=== PATIENT | female | born 1955 | race Caucasian/White ===

== ENCOUNTER 2018-10-19 11:56 | Emergency (ER) | payer BC ==
--- OUTSIDE RECORDS SUMMARY | 2018-10-19 13:10 | XMS REPORT | Continuity of Care Document ---
:1955 External Reference #:[id number] Author Name Camille Ryder PA-C Address [address] [place] [address] [place] [address] Care Team Providers Name Role Phone Jena Zapien MD Care Team Information Corrective Therapy Aide Teacher Unavailable Jena Zapien MD Primary Care Physician Unavailable Payers Type Date Identification Numbers Payment Provider Subscriber Policy Number: [id number] [facility] Jena Cortes Group Number: [id number] [address] [address] PayID: [id number] [place] [address] Advance Directives Description No Information Available Problems Date Description Provider Status Onset: 10/08/2018 Nausea and vomiting Camille Ryder PA-C Active Onset: 10/08/2018 Esophageal dysphagia Camille Ryder PA-C Active Onset: 10/08/2018 Gastroesophageal reflux disease Camille Ryder PA-C Active Family History Date Family Member(s) Problem(s) Comments General Hemochromatosis Social History Type Date Description Comments Sex Unknown Tobacco Use Start: Unknown End: Unknown Patient is a former smoker Smoking Status Reviewed: 10/08/18 Patient is a former smoker Allergies, Adverse Reactions, Alerts Date Description Reaction Status Severity Comments 04/28/2015 Darvon Active 04/28/2015 Codeine Active Medications Medication Date Status Form Strength Qnty SIG Indications Ordering Provider Rosuvastatin 10/08 Active Tablets 5mg 90tab Daily Paz s Maura león MD Tramadol HCL Active Tablets 50mg Howjacey, MD Jena Pantoprazole Active Tablets 40mg Howjacey, DR Jena MD Hydrocodone-Acetam Active Tablets 5-325mg Curry, ino MD Jena Placquenil Active 200mg bid Unknown Zolpidem Tartrate Active Tablets 10mg hs Unknown / Symbicort Active Aerosol 160-4.5mc 2 puff Unknown / g/Act twice a day Duloxetine HCL Active Caps DR 60mg Unknown Part Metoprolol Active Tablets 50mg Daily Unknown Tartrate Hydrochlorothiazid Active Tablets 25mg Daily Unknown e /0000 Lisinopril Active Tablets 20mg 1 by mouth Unknown / every day Proventil HFA Active Aerosol 108(90Bas inhale 2 Unknown /0000 e) puffs by mcg/Act mouth every 4 hours as needed for bronchospas m Peg 09/02 Hx Solution 240gm 4000m use as Camille 3350/ Rec valentina Ryder 10/08 , JENSEN- Immunizations Description No Information Available Vital Signs Date Vital Result Comment 10/08/2018 1:09pm Height 63 inches 5'3" Weight 244.00 lb BP Systolic 148 mmHg BP Diastolic 83 mmHg Heart Rate 96 /min BMI (Body Mass Index) 43.2 kg/m2 09/01/2017 1:18pm Height 63 inches 5'3" Weight 230.00 lb BMI (Body Mass Index) 40.7 kg/m2 Results Description No Information Available Procedures Date Code Description Status 09/18/2007 38890 Colonoscopy Completed Encounters Description No Information Available Plan of Treatment Future Appointment(s):10/23/2018 9:00 am - [facility] - JENSEN Gallego-[id number] Gastro-esophageal reflux disease without [id number] Dysphagia, pharyngoesophageal [id number] Nausea with vomiting, unspecified
[2018-10-19 13:14] VITALS: BP 141/94
--- NOTE | 2018-10-19 13:33 | UC ---
Ear Complaint HPI - HPI Summary HPI Summary: Pt felt R ear discomfort, occasional pain and she is wondering if there is a bug in her ear. This started 4-5 days ago. - History of Current Complaint Chief Complaint: UCEar Stated Complaint: EAR PAIN Time Seen by Provider: 10/19/18 13:12 ?: No Pain Intensity: 6 Pain Scale Used: 0-10 Numeric Aggravating Factors: Nothing Alleviating Factors: Other (Noted In Comments) - hydrogen peroxide. Associated Signs/Symptoms: Negative: Discharge, Hearing Loss - Allergies/Home Medications Allergies/Adverse Reactions: Allergies Allergy/AdvReac Type Severity Reaction Status Date / Time codeine Allergy Unknown Verified 10/19/18 13:14 Reaction Details propoxyphene [From Darvon] Allergy Dizziness Verified 10/19/18 13:14 horse serum Allergy Unknown Uncoded 10/19/18 13:14 Reaction Details Home Medications: Home Medications Fluticasone NASAL SPRAY 50MCG* [Flonase NASAL SPRAY 50MCG*] 1 spray INH ONCE PRN 10/19/18 [History Confirmed 10/19/18] Loratadine [Claritin] 10 mg PO ONCE PRN 10/19/18 [History Confirmed 10/19/18] PMH/Surg Hx/FS Hx/Imm Hx Previously Healthy: Yes Cardiovascular History: Hypertension Respiratory History: Asthma - Surgical History Surgical History: Yes Surgery Procedure, Year, and Place: hip replacements - Family History Known Family History: Positive: Other - Alzheimer's - Social History Alcohol Use: Occasionally Substance Use Type: Prescribed Smoking Status (MU): Former Smoker Type: Cigarettes Amount Used/How Often: 1PCK/DAY Length of Time of Smoking/Using Tobacco: 10 YEARS Have You Smoked in the Last Year: No Review of Systems All Other Systems Reviewed And Are Negative: Yes Constitutional: Positive: Negative Skin: Positive: Negative Respiratory: Positive: Negative Cardiovascular: Positive: Negative Physical Exam Vital Signs: Initial Vital Signs Temp 95.9 F 10/19/18 13:09 Pulse 90 10/19/18 13:09 Resp 18 10/19/18 13:09 BP 141/94 10/19/18 13:09 Pulse Ox 97 10/19/18 13:09 Ear Complaint Course/Dx - Course Course Of Treatment: Started w/ R ear pain and a small pimple/papule was noted in R canal. We also flushed it to clear cerumen debris. NO TM involvement. - Differential Dx/Diagnosis Differential Diagnosis/HQI/PQRI: Otitis Externa, Otitis Media, Trauma, Other Provider Diagnosis: Papule of skin Discharge - Sign-Out/Discharge Documenting (check all that apply): Patient Departure All imaging exams completed and their final reports reviewed: No Studies - Discharge Plan Condition: Good Disposition: HOME Patient Education Materials: Earache (ED) Referrals: Jena Zapien MD [Primary Care Provider] - Additional Instructions: The papule in your ear should resolve on its own. It's best not to put anything inside the ear. - Billing Disposition and Condition Condition: GOOD Disposition: Home
== END 2018-10-19 13:45 | disposition home or self-care (01) ==
LOC: UCEAST 11:56
DX: R23.8 Other skin changes (principal); I10 Essential (primary) hypertension; J45.909 Unspecified asthma, uncomplicated; Z88.5 Allergy status to narcotic agent; Z88.8 Allergy status to other drugs, medicaments and biological substances; Z91.048 Other nonmedicinal substance allergy status; Z87.891 Personal history of nicotine dependence
CPT/HCPCS: 99213; G0463